=== PATIENT | female | born 1980 | race Caucasian/White ===

== ENCOUNTER 2018-03-25 16:48 | Emergency (ER) | payer SELFPAY ==
[2018-03-25 17:00] VITALS: BP 134/108
[2018-03-25] MEDS ORDERED: CLIN300C99 PO (17:03)
[2018-03-25] MEDS ORDERED: PANT40TA65 PO (17:03)
[2018-03-25] MEDS ORDERED: NADO20TA12 PO (17:03)
[2018-03-25] MEDS ORDERED: ONDA4TAB PO (17:03)
[2018-03-25] MEDS ORDERED: LISI5TAB25 PO (17:03)
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
[2018-03-25] MEDS ORDERED: HYDR-389 PO (17:24)
== END 2018-03-25 17:13 | disposition home or self-care (01) ==
LOC: ER 17:00
DX: Z76.0 Encounter for issue of repeat prescription (principal)
CPT/HCPCS: 99281

== ENCOUNTER 2018-05-15 01:05 | Emergency (ER) | payer SELFPAY ==
[~2018-05-15 01:05] MED LIST: CLIN300C99 PO; HYDR-389 PO; LISI5TAB25 PO; NADO20TA12 PO; ONDA4TAB PO; PANT40TA65 PO
--- NOTE | 2018-05-15 01:12 | ER Report ---
History and Physical Time Seen By MD: 01:12 HPI/ROS CHIEF COMPLAINT: Skin lesions for 3 days HISTORY OF PRESENT ILLNESS: Patient is a 38-year-old female here with complaints of multiple pruritic skin lesions which started on her face and are now painful. Patient is scheduled to see a assistant superintendent for curriculum today. She has tried using steroid cream and lidocaine without relief of symptoms. Patient is hemodynamically stable at time of evaluation, afebrile and in no acute distress. She is tachycardic and has inappropriate tachycardia per patient report and currently has a Holter monitor in place. She is status post multiple ablations. REVIEW OF SYSTEMS: Constitutional: No fever, no chills. Eyes: No discharge. ENT: No sore throat. Cardiovascular: No chest pain, no palpitations. Respiratory: No cough, no shortness of breath. Gastrointestinal: No abdominal pain, no vomiting. Genitourinary: No hematuria. Musculoskeletal: No back pain. Skin: Several pruritic rashes on the face and torso and lower extremities. Neurological: No headache. Allergies: Coded Allergies: Sulfa (Sulfonamide Antibiotics) (Verified Allergy, Severe, anaphlaxis, 10/21) codeine (Verified Allergy, Severe, anaphlaxis, 05/15/18) Jqofpdt-Xaj-Chb Reductase Inhibitor (Verified Allergy, Unknown, muscle and joint deterioration, 05/15/18) diltiazem (Verified Allergy, Unknown, bradycardia, 05/15/18) ivabradine (Verified Allergy, Unknown, bradycardia, 05/15/18) ketorolac (Verified Allergy, Unknown, clotting problem, 05/15/18) metoprolol (Verified Allergy, Unknown, bradycardia, 05/15/18) prochlorperazine (Verified Allergy, Unknown, 05/15/18) NSAIDS (Non-Steroidal Anti-Inflamma (Verified Adverse Reaction, Unknown, clotting problem, 05/15/18) levofloxacin (Verified Adverse Reaction, Unknown, halucinations and SI, 10/21) Home Meds Active Scripts Ondansetron (ZOFRAN ODT) 4 Mg Tab.rapdis, 4 MG PO Q8H Y for NAUSEA/VOMITING, #4 TAB.KATIA Prov:STEVEN MATTA DO 03/25/18 Lisinopril (LISINOPRIL) 5 Mg Tablet, 5 MG PO QDAY, #5 TAB Prov:STEVEN MATTA DO 03/25/18 Pantoprazole Sodium (PANTOPRAZOLE SODIUM) 40 Mg Tablet.dr, 40 MG PO BID, #8 TAB.SR Prov:STEVEN MATTA DO 03/25/18 Nadolol (NADOLOL) 20 Mg Tablet, 20 MG PO DAILY, #4 TAB Prov:STEVEN MATTA DO 03/25/18 Reported Medications Ferrous Sulfate (FERROUS SULFATE) 325 Mg Tablet, 325 MG PO QDAY 05/15/18 Discontinued Scripts Acetaminophen/Hydrocodone (HYDROCODON-ACETAMINOPH 7.5-325) 1 Each Ea, 1-2 EACH PO Q6H Y for PAIN, #10 EA Prov:STEVEN MATTA DO 03/25/18 Clindamycin Hcl (CLINDAMYCIN HCL) 300 Mg Capsule, 300 MG PO Q6H, #16 CAPSULE Prov:STEVEN MATTA DO 03/25/18 Hx Substance Use Disorder: No Hx Alcohol Use: No Constitutional Vital Sign - Last 24 Hours 05/15/18 05/15/18 05/15/18 05/15/18 01:10 01:10 01:20 01:30 Pulse 123 120 Resp 18 14 B/P (MAP) 161/112 (128) 161/112 150/105 (120) Pulse Ox 100 99 O2 Delivery Room Air 05/15/18 05/15/18 05/15/18 05/15/18 01:35 01:50 02:00 02:05 Pulse 128 119 111 Resp 12 20 B/P (MAP) 147/100 (116) Pulse Ox 98 99 05/15/18 05/15/18 05/15/18 05/15/18 02:25 02:30 02:40 02:55 Pulse 101 106 105 Resp 12 12 15 B/P (MAP) 135/100 (112) Pulse Ox 98 05/15/18 05/15/18 03:00 03:10 Pulse 106 Resp 16 B/P (MAP) 135/98 (110) Pulse Ox 99 Physical Exam General Appearance: The patient is alert, has no immediate need for airway protection and no signs of toxicity. Eyes: Pupils equal and round no pallor or injection. ENT, Mouth: Mucous membranes are moist. Respiratory: There are no retractions, lungs are clear to auscultation. Cardiovascular: Tachycardia, regular Gastrointestinal: Abdomen is soft and non tender, no masses, bowel sounds normal. Neurological: No focal neurological deficits Skin: Several weeping, pruritic and painful rashes on the face torso and lower extremity Musculoskeletal: Neck is supple non tender. Extremities are nontender, nonswollen and have full range of motion. DIFFERENTIAL DIAGNOSIS: After history and physical exam differential diagnosis was considered for psoriasis, candidal infection, bacterial infection, viral exanthem Medical Decision Making Data Points Result Diagram: 05/15/188 05/15/188 Laboratory Hematology Test 05/15/18 02:28 Red Blood Count 4.02 M/uL (4.17-5.56) Mean Corpuscular Volume 92.3 fL (80.0-96.0) Mean Corpuscular Hemoglobin 31.5 pg (26.0-33.0) Mean Corpuscular Hemoglobin Concent 34.1 g/dL (32.0-36.0) Red Cell Distribution Width 14.1 % (11.5-14.5) Mean Platelet Volume 9.8 fL (7.2-11.1) Neutrophils (%) (Auto) 59.4 % (39.4-72.5) Lymphocytes (%) (Auto) 31.4 % (17.6-49.6) Monocytes (%) (Auto) 6.9 % (4.1-12.4) Eosinophils (%) (Auto) 1.0 % (0.4-6.7) Basophils (%) (Auto) 1.3 % (0.3-1.4) Nucleated RBC Relative Count (auto) 0.0 /100WBC Neutrophils # (Auto) 4.0 K/uL (2.0-7.4) Lymphocytes # (Auto) 2.1 K/uL (1.3-3.6) Monocytes # (Auto) 0.5 K/uL (0.3-1.0) Eosinophils # (Auto) 0.1 K/uL (0.0-0.5) Basophils # (Auto) 0.1 K/uL (0.0-0.1) Nucleated RBC Absolute Count (auto) 0.00 K/uL Erythrocyte Sedimentation Rate 4 mm/HOUR (0-20) Sodium Level 140 mmol/L (137-145) Potassium Level 2.9 mmol/L (3.5-5.0) Chloride Level 109 mmol/L (98-107) Carbon Dioxide Level 19 mmol/L (22-31) Blood Urea Nitrogen 9 mg/dl (7-18) Creatinine 0.80 mg/dl (0.52-1.04) Glomerular Filtration Rate Calc > 60.0 Random Glucose 77 mg/dl (75-110) Calcium Level 7.8 mg/dl (8.4-10.2) Total Bilirubin 0.3 mg/dl (0.2-1.3) Aspartate Amino Transf (AST/SGOT) 16 U/L (0-35) Alanine Aminotransferase (ALT/SGPT) 19 U/L (0-56) Alkaline Phosphatase 43 U/L (0-126) C-Reactive Protein < 0.5 mg/dl (<1.0) Total Protein 6.1 g/dl (6.3-8.2) Albumin 3.6 g/dl (3.5-5.0) Chemistry Test 05/15/18 02:28 White Blood Count 6.8 k/uL (4.5-11.0) Red Blood Count 4.02 M/uL (4.17-5.56) Hemoglobin 12.7 g/dL (12.0-16.0) Hematocrit 37.1 % (34.0-47.0) Mean Corpuscular Volume 92.3 fL (80.0-96.0) Mean Corpuscular Hemoglobin 31.5 pg (26.0-33.0) Mean Corpuscular Hemoglobin Concent 34.1 g/dL (32.0-36.0) Red Cell Distribution Width 14.1 % (11.5-14.5) Platelet Count 226 K/uL (150-450) Mean Platelet Volume 9.8 fL (7.2-11.1) Neutrophils (%) (Auto) 59.4 % (39.4-72.5) Lymphocytes (%) (Auto) 31.4 % (17.6-49.6) Monocytes (%) (Auto) 6.9 % (4.1-12.4) Eosinophils (%) (Auto) 1.0 % (0.4-6.7) Basophils (%) (Auto) 1.3 % (0.3-1.4) Nucleated RBC Relative Count (auto) 0.0 /100WBC Neutrophils # (Auto) 4.0 K/uL (2.0-7.4) Lymphocytes # (Auto) 2.1 K/uL (1.3-3.6) Monocytes # (Auto) 0.5 K/uL (0.3-1.0) Eosinophils # (Auto) 0.1 K/uL (0.0-0.5) Basophils # (Auto) 0.1 K/uL (0.0-0.1) Nucleated RBC Absolute Count (auto) 0.00 K/uL Erythrocyte Sedimentation Rate 4 mm/HOUR (0-20) Glomerular Filtration Rate Calc > 60.0 Calcium Level 7.8 mg/dl (8.4-10.2) Total Bilirubin 0.3 mg/dl (0.2-1.3) Aspartate Amino Transf (AST/SGOT) 16 U/L (0-35) Alanine Aminotransferase (ALT/SGPT) 19 U/L (0-56) Alkaline Phosphatase 43 U/L (0-126) C-Reactive Protein < 0.5 mg/dl (<1.0) Total Protein 6.1 g/dl (6.3-8.2) Albumin 3.6 g/dl (3.5-5.0) EKG/Imaging EKG Interpretation Test Reason : CARDIAC Blood Pressure : / mmHG Vent. Rate : 120 BPM Atrial Rate : 120 BPM P-R Int : 140 ms QRS Dur : 078 ms QT Int : 334 ms P-R-T Axes : 077 056 006 degrees QTc Int : 472 ms Sinus tachycardia Possible biatrial enlargement Decreased R wave progression anteriorly Nonspecific ST-T findings diffusely Abnormal ECG No previous ECGs available Confirmed by JOSEPH VIERA ([id number]) on 05/15/2018 6:06:09 AM Referred By: Confirmed By:JOSEPH VIERA Monitor Interpretation: Sinus Tachycardia ED Course/Re-evaluation ED Course Patient is a 38-year-old female here with complaints of skin rashes the face and torso and lower extremity for the past 3 days which has been worsening in spite of using topical corticosteroid creams. Patient was found to have hypokalemia on labs and was repleted. Patient was given fentanyl, Atarax for allergic etiology control, saline bolus. Patient was also noted to have a rapid heart rate EKG showed no ischemic changes, Holter monitor remains in place. Patient to follow up with dermatology this morning. Patient was stable at time of discharge. Decision to Disposition Date: May 15, 2018 Decision to Disposition Time: 03:00 Depart Departure Latest Vital Signs Vital Signs Date Time Temp Pulse Resp B/P (MAP) Pulse Ox O2 Delivery O2 Flow Rate FiO2 05/15/18 03:10 106 16 99 05/15/18 03:00 135/98 (110) 05/15/18 01:10 Room Air Impression: Primary Impression: Skin abnormalities Condition: Improved Disposition: HOME OR SELF-CARE Patient Instructions: Acute Rash (ED) Additional Instructions: Please follow up with your assistant superintendent for curriculum today as scheduled. Please return promptly if you develop worsening pain, nausea, vomiting, fevers or chills. JUAN C GONZALES DO May 15, 2018 01:12
[2018-05-15] MEDS ORDERED: FERR-53 PO (01:28)
[2018-05-15] MEDS ORDERED: NS(*) 0.9% 1000 ML BAG 1,000 ML IV ONE (01:39)
[2018-05-15] MEDS ORDERED: fentaNYL CITR 100 MCG/2 ML AMP IVP ONE (01:40)
[2018-05-15] MEDS ORDERED: hydrOXYzine 25 MG TAB PO ONE (01:40)
--- NOTE | 2018-05-15 02:23 | EKG ---
FACILITY: [facility] PATIENT NAME: DI SAINI : [id number] MR: [id number] V: [id number] EXAM DATE: ORDERING PHYSICIAN: UJAN C GONZALES TECHNOLOGIST: JUHI Falk Reason : CARDIAC Blood Pressure : / mmHG Vent. Rate : 120 BPM Atrial Rate : 120 BPM P-R Int : 140 ms QRS Dur : 078 ms QT Int : 334 ms P-R-T Axes : 077 056 006 degrees QTc Int : 472 ms Sinus tachycardia Possible biatrial enlargement Decreased R wave progression anteriorly Nonspecific ST-T findings diffusely Abnormal ECG No previous ECGs available Confirmed by JOSEPH VIERA ([id number] on 05/15/2018 6:06:09 AM Referred By: Confirmed By:JOSEPH VIERA
[2018-05-15 02:33] LABS: PLATELET COUNT, AUTOMATED 226 K/uL (150-450)
[2018-05-15 03:00] VITALS: BP 135/98
[2018-05-15] MEDS ORDERED: POTASSIUM CHL 20 MEQ TABCR PO ONE (03:00)
== END 2018-05-15 03:20 | disposition home or self-care (01) ==
LOC: ER 01:37
DX: L98.9 Disorder of the skin and subcutaneous tissue, unspecified (principal); E87.6 Hypokalemia; R00.0 Tachycardia, unspecified; R94.31 Abnormal electrocardiogram [ECG] [EKG]
CPT/HCPCS: 36415; 85025; 85651; 86140; 93005; 96361; 96374; 99284; J3010; J7030; 82040; 82247; 82310; 82374; 82435; 82565; 82947; 84075; 84132; 84155; 84295; 84450; 84460; 84520